=== PATIENT | female | born 1965 | race Caucasian/White ===

== ENCOUNTER 2018-11-26 10:51 | Observation (INO) | payer MEDICARE ==
[2018-11-26] VITALS (289 sets, daily range): BP systolic 114–152; BP diastolic 62–81; PULSE 62–74; TEMP 98–98.1; O2SAT 92–100
[~2018-11-26] VITALS: Ht 162.6 cm; Wt 110.0 kg
[~2018-11-26 10:51] MED LIST: BETAMETHASONE D0.053 TP; BUMEX 1MG TA1 MG/TA1 PO; LANTUS SOLOS100 U/ML SQ; NORVASC 5MG5 MG/TAB PO; NOVOLOG 100U100 U/M1 SQ; PRINIVIL10 MG PO; SYNTHROID0.2 MG/TAB PO; ULTRAM 50MG TAB50 MG PO
[2018-11-26 11:11] LABS: BASO # 0.1 (0.0-0.2); BASO % 0.9 % (0.0-2.0); EOS # 0.2 (0.0-0.7); GRAN # 5.5 (1.4-6.5); GRAN % 67.6 % (42.2-75.2); HEMOGLOBIN 12.3 g/dl (12.5-16.0); LYMPH # 1.8 (1.2-3.4); LYMPH % 22.1 % (20.0-51.0); MEAN CELL VOLUME 91 fl (80.0-100.0); MEAN CORPUSCULAR HEMOGLOBIN 29 pg (27.0-31.0); MEAN CORPUSCULAR HGB CONC 32 g/dl (33.0-37.0); MEAN PLATELET VOLUME 10.6 fl (7.4-10.4); MONO # 0.6 (0.1-0.6); MONO % 7.2 % (1.7-9.3); PLATELET COUNT 310 K/mm3 (130-400); RED BLOOD COUNT 4.29 M/mm3 (4.10-5.30); REDCELL DISTRIBUTION WIDTH-CV 14.5 % (11.5-14.5)
[2018-11-26 11:14] LABS: INR 0.9 (0.8-3.0)
[2018-11-26 11:23] LABS: PARTIAL THROMBOPLASTIN TIME 35.1 SECONDS (26.0-37.0)
[2018-11-26 11:24] LABS: ALANINE AMINOTRANSFERASE 12 U/L (9-52); ALBUMIN 4.1 gm/dL (3.5-5.0); ALKALINE PHOSPHATASE 111 U/L (50-136); ANION GAP 8 mmol/L (7-16); AST,SGOT 25 U/L (15-37); BILIRUBIN,TOTAL 0.4 mg/dL (0.0-1.0); BLOOD UREA NITROGEN 51 mg/dL (7-17); CALCIUM 9.8 mg/dL (8.4-10.2); CARBON DIOXIDE 22 mmol/L (22-30); CHLORIDE 110 mmol/L (98-107); CREATININE, serum 1.96 (0.52-1.25); GLUCOSE 169 mg/dL (74-106); POTASSIUM 5.6 mmol/L (3.4-5.0); SODIUM 140 mmol/L (137-145); TOTAL PROTEIN 7.7 gm/dL (6.4-8.2)
[2018-11-26 11:39] LABS: TROPONIN-I < 0.012 ng/mL (0.000-0.035)
[2018-11-26] MEDS ORDERED: NEURONTIN300 MG/CAP PO (12:55)
[2018-11-26] MEDS ORDERED: TEMOVATE60CR TOP (12:55)
[2018-11-26] MEDS ORDERED: NORVASC 5MG5 MG/TAB PO (12:55)
[2018-11-26] MEDS ORDERED: BUMEX 1MG TA1 MG/TA1 PO (12:55)
[2018-11-26] MEDS ORDERED: NOVOLOG FLEX100 U/ML SQ (12:56)
[2018-11-26] MEDS ORDERED: LEVOXYL0.125 MG PO (12:56)
[2018-11-26] MEDS ORDERED: TRULICITY0.75 MG/0. SQ (12:57)
[2018-11-26] MEDS ORDERED: ULTRAM 50MG TAB50 MG PO (12:57)
[2018-11-26] MEDS ORDERED: PRINIVIL10 MG PO (12:57)
[2018-11-26] MEDS ORDERED: 00186-0370-20 IH (12:57)
--- NOTE | 2018-11-26 13:32 | NUR ---
PLEASE SEE MERGE FOR ALL MEDICATION ADMINISTRATION TIMES , RASS ASSESSMENT DURING AND POST PROCEDURE.ALLENS TEST POSITIVE RIGHT RADIAL APPROACH PREPPED AND DRAPED.
--- NOTE | 2018-11-26 14:55 | NUR ---
Patient arrives to ICU. TR band in place on right radial site. She is alert and oriented. VS WNL. No s/s bleeding or hematoma. Will continue to monitor.
[2018-11-26] MEDS ORDERED: LANTUS100 U/ML (15:06)
[2018-11-26] MEDS ORDERED: LANTUS SOLOS100 U/ML SQ (15:07)
--- NOTE | 2018-11-26 18:30 | NUR ---
AIR REMOVED FROM TR BAND INTERMITTENTLY. ALL AIR REMOVED FROM TR BAND, THEN OOZING OCCURRED. 7 CC REPLACED BACK IN TR BAND. PATIENT GIVEN EDUCATION ON ABSTAINING FROM FLEXING WRIST OR DOING VERY MUCH WITH THAT ARM. SHE VERBALIZES UNDERSTANDING.
--- NOTE | 2018-11-26 22:05 | NUR ---
RADIAL COMPRESSION BAND REMOVED AT THIS TIME. COVERED WITH A BANDAID AND GAUZE.
[2018-11-27] VITALS (96 sets, daily range): BP systolic 136–171; BP diastolic 66–72; PULSE 61–73; TEMP 97.3–98.6; O2SAT 91–100
--- NOTE | 2018-11-27 03:29 | NUR ---
PATIENT IS CURRENTLY TALKING TO A FRIEND ON THE PHONE. PATIENT IS DOING GOOD. DENIES ANY PAINAT THIS TIME.
[2018-11-27 04:57] LABS: BASO % 0.5 % (0.0-2.0); EOS # 0.2 (0.0-0.7); EOS % 2.7 % (0-4.0); GRAN # 3.9 (1.4-6.5); GRAN % 61.8 % (42.2-75.2); LYMPH # 1.6 (1.2-3.4); LYMPH % 25.4 % (20.0-51.0); MEAN CELL VOLUME 91 fl (80.0-100.0); MEAN CORPUSCULAR HEMOGLOBIN 29 pg (27.0-31.0); MEAN CORPUSCULAR HGB CONC 32 g/dl (33.0-37.0); MEAN PLATELET VOLUME 10.7 fl (7.4-10.4); MONO # 0.6 (0.1-0.6); MONO % 9.4 % (1.7-9.3); PLATELET COUNT 250 K/mm3 (130-400); RED BLOOD COUNT 3.76 M/mm3 (4.10-5.30); REDCELL DISTRIBUTION WIDTH-CV 14.3 % (11.5-14.5)
[2018-11-27 04:58] LABS: HEMATOCRIT 34.3 % (37.0-47.0)
[2018-11-27 05:10] LABS: CALCIUM 9.1 mg/dL (8.4-10.2); CHOLESTEROL RISK RATIO 3.2; CREATININE, serum 1.57 (0.52-1.25); POTASSIUM 5.2 mmol/L (3.4-5.0)
--- NOTE | 2018-11-27 07:04 | NUR ---
GAVE REPORT TO ANAMIKA BLAKE.
[2018-11-27] MEDS ORDERED: BRILINTA90 MG PO (09:25)
[2018-11-27] MEDS ORDERED: ASPIRIN E.C. 8181 MG PO (09:25)
[2018-11-27] MEDS ORDERED: LIPITOR 80MG80 MG PO (09:25)
[2018-11-27] MEDS ORDERED: NEURONTIN300 MG/CAP PO (09:27)
[2018-11-27] MEDS ORDERED: COREG 3.123.125 MG/T PO (09:31)
--- NOTE | 2018-11-27 10:21 | NUR ---
SW attended clinical rounds. Patient lives independently at home with her . Patient's PCP is Dr Duckworth and [facility]. Patient does not use any DME or home health services. Patient does not have a DPOA. Patient will discharge home today. No discharge needs.
--- NOTE | 2018-11-27 11:31 | NUR ---
First visit from the broadcast technician. No needs right now.
--- NOTE | 2018-11-27 11:35 | NUR ---
Discharge instructions and education given to patient and reviewed. Voices understanding. Reviewed all medicaiton changes, pharmacy also spoke with patient about new medications and changes in current medications.
--- NOTE | 2018-11-27 12:01 | NUR ---
Sitting up in chair, dressed and waiting on . ICU Nurse supervisior in with patient at this time. Will await 's arrival.
--- NOTE | 2018-11-27 12:06 | NUR ---
Ambulatory to POV with driving. All belongings with patient.
== END 2018-11-27 12:06 | disposition home or self-care (01) ==
LOC: COL.ER 10:51 → MEDICAL 12:38 → ICU 15:03
PROVIDERS: Family Medicine; ADMIT Internal Medicine Cardiovascular Disease
DX: H54.40 Blindness, one eye, unspecified eye (principal); I25.110 Atherosclerotic heart disease of native coronary artery with unstable angina pectoris; E87.5 Hyperkalemia; E11.22 Type 2 diabetes mellitus with diabetic chronic kidney disease; I12.9 Hypertensive chronic kidney disease with stage 1 through stage 4 chronic kidney disease, or unspecified chronic kidney disease; N18.4 Chronic kidney disease, stage 4 (severe); L40.9 Psoriasis, unspecified; Z79.4 Long term (current) use of insulin; Z79.899 Other long term (current) drug therapy; Z87.891 Personal history of nicotine dependence; Z82.49 Family history of ischemic heart disease and other diseases of the circulatory system; E11.319 Type 2 diabetes mellitus with unspecified diabetic retinopathy without macular edema; E11.40 Type 2 diabetes mellitus with diabetic neuropathy, unspecified; G89.29 Other chronic pain; M54.30 Sciatica, unspecified side; J44.9 Chronic obstructive pulmonary disease, unspecified; E03.9 Hypothyroidism, unspecified; H54.62 Unqualified visual loss, left eye, normal vision right eye
CPT/HCPCS: 99239; C9600; G0378; J0153; J1644; J1815; J2250; J3010; Q9967

== ENCOUNTER 2018-12-05 05:14 | Observation (INO) | payer MEDICARE ==
[~2018-12-05] VITALS: Ht 162.6 cm; Wt 110.9 kg
[~2018-12-05 05:14] MED LIST changes: +00186-0370-20 IH; +ASPIRIN E.C. 8181 MG PO; +BRILINTA90 MG PO; +COREG 3.123.125 MG/T PO; +LANTUS100 U/ML; +LEVOXYL0.125 MG PO; +LIPITOR 80MG80 MG PO; +NEURONTIN300 MG/CAP PO; +NOVOLOG FLEX100 U/ML SQ; +TEMOVATE60CR TOP; +TRULICITY0.75 MG/0. SQ
[2018-12-05 06:01] LABS: BASO # 0.1 (0.0-0.2); BASO % 0.6 % (0.0-2.0); EOS % 0.3 % (0-4.0); GRAN # 8.5 (1.4-6.5); GRAN % 80.6 % (42.2-75.2); HEMATOCRIT 37.8 % (37.0-47.0); HEMOGLOBIN 12.3 g/dl (12.5-16.0); LYMPH # 1.4 (1.2-3.4); LYMPH % 13.2 % (20.0-51.0); MEAN CELL VOLUME 90 fl (80.0-100.0); MEAN CORPUSCULAR HEMOGLOBIN 29 pg (27.0-31.0); MEAN CORPUSCULAR HGB CONC 33 g/dl (33.0-37.0); MEAN PLATELET VOLUME 11.5 fl (7.4-10.4); MONO # 0.5 (0.1-0.6); MONO % 4.9 % (1.7-9.3); PLATELET COUNT 311 K/mm3 (130-400); RED BLOOD COUNT 4.22 M/mm3 (4.10-5.30); REDCELL DISTRIBUTION WIDTH-CV 14.5 % (11.5-14.5)
[2018-12-05 07:10] LABS: ALANINE AMINOTRANSFERASE 34 U/L (9-52); ALBUMIN 3.6 gm/dL (3.5-5.0); ALKALINE PHOSPHATASE 119 U/L (50-136); ANION GAP 13 mmol/L (7-16); AST,SGOT 24 U/L (15-37); BILIRUBIN,TOTAL 0.6 mg/dL (0.0-1.0); BLOOD UREA NITROGEN 35 mg/dL (7-17); C-REACTIVE PROTEIN 0.9 mg/dL (0.0-0.9); CALCIUM 9.2 mg/dL (8.4-10.2); CARBON DIOXIDE 19 mmol/L (22-30); CHLORIDE 108 mmol/L (98-107); CREATININE, serum 1.76 (0.52-1.25); GLUCOSE 261 mg/dL (74-106); LIPASE 111 U/L (23-300); SODIUM 139 mmol/L (137-145); TOTAL PROTEIN 6.6 gm/dL (6.4-8.2)
[2018-12-05 07:11] LABS: POTASSIUM 6.3 mmol/L (3.4-5.0)
[2018-12-05 07:17] LABS: TROPONIN-I < 0.012 ng/mL (0.000-0.035)
[2018-12-05 11:09] VITALS: BP 138/56; PULSE 79; TEMP 98.2
--- NOTE | 2018-12-05 12:36 | NUR ---
Pt resting in bed with friend at bedside. Pt IV patent with no redness or infiltration noted and bicarb running per orders. Pt BS checked hourly x4. Pt does not have diet yet. Pt complains of pain in her back and lungs with breathing and abdomen. Pt given Tramadol per order from Dr. Wetzel with pain rated at 6/10. Pt has call light in reach. Pt reports diarhea this am. Pt denies needs at this time.
[2018-12-05 12:44] VITALS: BP 150/56; PULSE 82; TEMP 98.7
[2018-12-05 13:25] LABS: CALCIUM 9.2 mg/dL (8.4-10.2); CREATININE, serum 1.88 (0.52-1.25); POTASSIUM 5.1 mmol/L (3.4-5.0)
[2018-12-05 15:49] VITALS: BP 149/59; PULSE 79; TEMP 98.6
--- NOTE | 2018-12-05 17:50 | NUR ---
Pt stable this afternoon. Pain managed with Tramadol. Pt switched to NS and bicarb discontinued. Pt IV free of complications. Pt aware to let staff know when have BM or urine for collection. Pt started on clear liquid diet. Pt has drank water without issue and clear tray arrived. Pt given insulin per scale. Pt rates pain 3/10 in abdomen and back. Pt has call light in reach and denies needs at this time.
--- NOTE | 2018-12-05 18:53 | NUR ---
Pt report given to Divya WILLSON. Pt UA collected and Divya will take it down to lab. Pt alert and oriented and denies needs at this time.
[2018-12-05 20:32] LABS: COLLECTION METHOD CLEAN CATCH
[2018-12-05 20:52] LABS: MUCOUS Present /lpf; PH 5 (5-8); SQUAMOUS EPITHELIAL 0-2 /hpf; URINE APPEARANCE Clear; URINE BACTERIA None Seen /hpf; URINE BILIRUBIN Negative (NEGATIVE); URINE BLOOD Negative (NEGATIVE); URINE COLOR Yellow; URINE GLUCOSE 3+ (NEGATIVE); URINE KETONE 1+ (NEGATIVE); URINE LEUKOCYTE ESTERASE Negative (NEGATIVE); URINE NITRATE Negative (NEGATIVE); URINE PROTEIN(semi-quant) Negative (NEGATIVE); URINE RBC None Seen /hpf; URINE UROBILINOGEN Negative (NEGATIVE)
--- NOTE | 2018-12-05 20:53 | NUR ---
Resting in bed. Assessment complete. Lungs clear. Heart sounds normal. Bowels active x4. Pulses strong throughout. No edema noted. IV to left AC infusing without complications. Reports 4/10 back pain. Provided with scheduled tramadol. Denies other needs at this time. Call light in reach.
[2018-12-05 23:42] VITALS: BP 153/57; PULSE 69; TEMP 98.6
[2018-12-06 04:25] VITALS: BP 164/61; PULSE 96; TEMP 99
[2018-12-06 04:35] VITALS: BP 146/50
--- NOTE | 2018-12-06 05:48 | NUR ---
Patient had uneventful night. Resting in bed this AM. Call light in reach.
--- NOTE | 2018-12-06 06:55 | NUR ---
Report given to ANAMIKA Jones
[2018-12-06 07:05] LABS: BASO # 0.1 (0.0-0.2); BASO % 0.9 % (0.0-2.0); EOS # 0.2 (0.0-0.7); EOS % 2.5 % (0-4.0); GRAN # 3.7 (1.4-6.5); GRAN % 55.3 % (42.2-75.2); HEMOGLOBIN 10.9 g/dl (12.5-16.0); LYMPH # 2.1 (1.2-3.4); LYMPH % 30.6 % (20.0-51.0); MEAN CELL VOLUME 91 fl (80.0-100.0); MEAN CORPUSCULAR HEMOGLOBIN 29 pg (27.0-31.0); MEAN CORPUSCULAR HGB CONC 32 g/dl (33.0-37.0); MEAN PLATELET VOLUME 11.5 fl (7.4-10.4); MONO # 0.7 (0.1-0.6); MONO % 10.6 % (1.7-9.3); PLATELET COUNT 278 K/mm3 (130-400); RED BLOOD COUNT 3.75 M/mm3 (4.10-5.30); REDCELL DISTRIBUTION WIDTH-CV 14.7 % (11.5-14.5)
[2018-12-06 07:24] LABS: CALCIUM 8.6 mg/dL (8.4-10.2); CREATININE, serum 1.52 (0.52-1.25); POTASSIUM 4.3 mmol/L (3.4-5.0)
[2018-12-06 08:32] VITALS: BP 162/77; PULSE 70; TEMP 98.5
--- NOTE | 2018-12-06 08:50 | NUR ---
Pt assessment complete. Pt is sitting up on side of bed upon entry, she is A/O x3. Pt states she is ready to go home. Denies N/V or diarrhea. Currently reports pain to lower back, scheduled Ultram administered. POC discussed with patient who is going to try a bland diet this am. No needs at this time. Call light within reach.
[2018-12-06 09:17] LABS: URINE PROTEIN:CREAT RATIO 0.4 (0.00-0.14)
--- NOTE | 2018-12-06 11:59 | NUR ---
KARL met with the patient to discuss a discharge plan. The patient lives in [place] with her , Srini. The patient does not use any DME and reports independence with ADLs. The patient's PCP is Dr. Duckworth and the patient receives her medications from [facility]. The patient reports no difficulties obtaining her medications. The patient does not have advanced directives in the EMR and she was not interested in obtaining a DPOA-HC form. The patient plans to return home upon discharge. There are no additional needs at this time.
[2018-12-06 12:02] VITALS: BP 151/85; PULSE 65; TEMP 98.6
[2018-12-06] MEDS ORDERED: NORVASC 5MG5 MG/TAB PO (12:22)
--- NOTE | 2018-12-06 14:05 | NUR ---
Discharge paperwork and instructions reviewed with patient all questions answered at this time. IV to LAC dc'd catheter tip intact. Pt wheeled out at this time.
== END 2018-12-06 14:06 | disposition home or self-care (01) ==
LOC: COL.ER 05:14 → MEDICAL 07:42
PROVIDERS: Emergency Medicine; Internal Medicine; Physician Assistant; ADMIT Family Medicine
DX: K52.9 Noninfective gastroenteritis and colitis, unspecified (principal); E87.5 Hyperkalemia; E87.2 Acidosis; E11.22 Type 2 diabetes mellitus with diabetic chronic kidney disease; I12.9 Hypertensive chronic kidney disease with stage 1 through stage 4 chronic kidney disease, or unspecified chronic kidney disease; N18.3 Chronic kidney disease, stage 3 (moderate); Z79.4 Long term (current) use of insulin; E11.40 Type 2 diabetes mellitus with diabetic neuropathy, unspecified; E11.319 Type 2 diabetes mellitus with unspecified diabetic retinopathy without macular edema; I25.10 Atherosclerotic heart disease of native coronary artery without angina pectoris; Z95.5 Presence of coronary angioplasty implant and graft; J44.9 Chronic obstructive pulmonary disease, unspecified; E03.9 Hypothyroidism, unspecified; L40.9 Psoriasis, unspecified; M54.30 Sciatica, unspecified side; H54.8 Legal blindness, as defined in USA; Z87.891 Personal history of nicotine dependence
CPT/HCPCS: G0378; J0610; J1644; J1815; J2270; J2405; J7030

== ENCOUNTER 2019-01-17 21:03 | Inpatient (IN) | payer MEDICARE ==
[~2019-01-17] VITALS: Ht 165.1 cm; Wt 100.8 kg
[2019-01-17 21:56] LABS: ALANINE AMINOTRANSFERASE 35 U/L (9-52); ALBUMIN 4.3 gm/dL (3.5-5.0); ALKALINE PHOSPHATASE 145 U/L (50-136); ANION GAP 16 mmol/L (7-16); AST,SGOT 36 U/L (15-37); BILIRUBIN,TOTAL 0.6 mg/dL (0.0-1.0); BLOOD UREA NITROGEN 44 mg/dL (7-17); CALCIUM 10.1 mg/dL (8.4-10.2); CARBON DIOXIDE 23 mmol/L (22-30); CHLORIDE 101 mmol/L (98-107); CREATININE, serum 2.65 (0.52-1.25); GLUCOSE 122 mg/dL (74-106); LIPASE 41 U/L (23-300); POTASSIUM 3.7 mmol/L (3.4-5.0); SODIUM 140 mmol/L (137-145); TOTAL PROTEIN 8.1 gm/dL (6.4-8.2)
[2019-01-17 21:57] LABS: C-REACTIVE PROTEIN < 0.5 mg/dL (0.0-0.9)
[2019-01-17 22:05] LABS: TROPONIN-I < 0.012 ng/mL (0.000-0.035)
[2019-01-17 22:25] LABS: BASO # 0.1 (0.0-0.2); BASO % 0.9 % (0.0-2.0); EOS # 0.3 (0.0-0.7); EOS % 2.6 % (0-4.0); GRAN # 5.9 (1.4-6.5); GRAN % 61.7 % (42.2-75.2); HEMATOCRIT 41.6 % (37.0-47.0); HEMOGLOBIN 13.7 g/dl (12.5-16.0); LYMPH # 2.5 (1.2-3.4); LYMPH % 25.8 % (20.0-51.0); MEAN CELL VOLUME 90 fl (80.0-100.0); MEAN CORPUSCULAR HEMOGLOBIN 30 pg (27.0-31.0); MEAN CORPUSCULAR HGB CONC 33 g/dl (33.0-37.0); MEAN PLATELET VOLUME 10.7 fl (7.4-10.4); MONO # 0.8 (0.1-0.6); MONO % 8.8 % (1.7-9.3); PLATELET COUNT 378 K/mm3 (130-400); RED BLOOD COUNT 4.62 M/mm3 (4.10-5.30); REDCELL DISTRIBUTION WIDTH-CV 15.5 % (11.5-14.5)
[2019-01-17 22:36] LABS: COLLECTION METHOD CLEAN CATCH
[2019-01-17 22:45] LABS: HYALINE CAST >12 /lpf; MUCOUS Present /lpf; PH 5 (5-8); SQUAMOUS EPITHELIAL 0-2 /hpf; URINE APPEARANCE Clear; URINE BACTERIA None Seen /hpf; URINE BILIRUBIN Negative (NEGATIVE); URINE BLOOD Negative (NEGATIVE); URINE COLOR Yellow; URINE GLUCOSE Negative (NEGATIVE); URINE KETONE Negative (NEGATIVE); URINE LEUKOCYTE ESTERASE Negative (NEGATIVE); URINE NITRATE Negative (NEGATIVE); URINE PROTEIN(semi-quant) Negative (NEGATIVE); URINE RBC 0-2 /hpf; URINE UROBILINOGEN Negative (NEGATIVE)
[2019-01-17 23:50] VITALS: BP 120/71; PULSE 70; TEMP 98.3
--- NOTE | 2019-01-18 01:24 | NUR ---
PT ARRIVED FROM ER VIA WHEELCHAIR WITH NO FAMILY. PT CAME IN DUE TO ABDOMINAL PAIN THAT HAS BEEN GOING ON FOR A WHILE, ABOUT 1 WEEK SINCE SATURDAY. PT ADVISES THAT SHE HAS NOT BEEN TAKING INSULIN DUE TO NOT BEING ABLE TO EAT LIKE SHE IS USE TO. PT HAS BANDAIDS ON ARMS DUE TO BLEEDING WHEN SHE RUBS HER ARM. PT ADVISES THAT WAS FROM THE BLOOD THINNERS SHE WAS TAKING, NOT SURE WHAT THE NAME OF IT IS AT THIS TIME. PT RATES PAIN AT A 7/10 THAT IS SHARP IN ABDOMEN. NO NEEDS AT TIME. CALL LIGHT WITHIN REACH.
[2019-01-18] MEDS ORDERED: BUMEX 1MG TA1 MG/TA1 PO (02:03)
[2019-01-18] MEDS ORDERED: BLOOD THINNER PO (02:04)
[2019-01-18] MEDS ORDERED: HYDRODIURIL50 MG PO (02:07)
[2019-01-18 03:52] VITALS: BP 135/72; PULSE 65; TEMP 98.2
[2019-01-18 07:10] LABS: BASO # 0.1 (0.0-0.2); BASO % 0.8 % (0.0-2.0); EOS # 0.3 (0.0-0.7); EOS % 3.8 % (0-4.0); GRAN # 4.3 (1.4-6.5); GRAN % 56.3 % (42.2-75.2); HEMOGLOBIN 11.9 g/dl (12.5-16.0); LYMPH # 2.3 (1.2-3.4); LYMPH % 29.6 % (20.0-51.0); MEAN CELL VOLUME 91 fl (80.0-100.0); MEAN CORPUSCULAR HEMOGLOBIN 30 pg (27.0-31.0); MEAN CORPUSCULAR HGB CONC 32 g/dl (33.0-37.0); MEAN PLATELET VOLUME 10.7 fl (7.4-10.4); MONO # 0.7 (0.1-0.6); MONO % 9.2 % (1.7-9.3); PLATELET COUNT 332 K/mm3 (130-400); RED BLOOD COUNT 4.04 M/mm3 (4.10-5.30); REDCELL DISTRIBUTION WIDTH-CV 15.7 % (11.5-14.5)
[2019-01-18 07:18] LABS: HEMATOCRIT 36.8 % (37.0-47.0)
--- NOTE | 2019-01-18 07:19 | NUR ---
PT SLEPT/RESTED WELL IN BED, EVEN THOUGH PT ADVISED THAT SHE HAD PAIN RATED AT A 7/10 THAT WAS SHARP IN HER ABDOMEN. PT WAS GIVEN NORCO 5/325 MG PO FOR PAIN. PT HAD CALLED OF NEW MEDICATIONS AND THE MEDS THAT SHE RECEIVED FROM HIM WAS ALREADY ON HER LIST. PT DID NOT HAVE ANY BLOOD THINNER LISTED. PT HAD NO FURTHER NEEDS, CALL LIGHT WITHIN REACH.
[2019-01-18 07:25] LABS: CREATININE, serum 2.17 (0.52-1.25); POTASSIUM 3.2 mmol/L (3.4-5.0)
[2019-01-18 08:34] VITALS: BP 138/63; PULSE 66; TEMP 98.2
--- NOTE | 2019-01-18 09:01 | NUR ---
Patient laying in bed upon assessment. Continues to complain of abdominal pain at 7/10. States that the previous dose of [place] did not decrease pain. Another dose given in addition to scheduled Neurontin. Tray of clear liquids ordered for patient to try sipping on this morning. Patient states that eating typically makes the pain worse but would like to and is willing to try some clear liquids. Inspiratory and expiratory wheezing heard. Patient states she has COPD/emphysema and this is normal for her. No oxygen use at this time and patient denies being short of breath. Patient continuing to rest in bed at this time. No further concerns. Call light in reach.
--- NOTE | 2019-01-18 11:16 | NUR ---
Order placed for GI consult. Notified Dr. Mcbride's nurse of consult as her was in a procedure.
[2019-01-18 11:20] VITALS: BP 120/73; PULSE 66; TEMP 97.9
[2019-01-18 15:59] VITALS: BP 115/72; PULSE 103; TEMP 98.2
--- NOTE | 2019-01-18 16:41 | NUR ---
Plans to return home with Srini Juarez . Patient reports that [place] [address] [place] [address] [place] Patient reports that she has her spouse as care support or son Lamont Granda . Patient reports PCP as [facility] used for RX and denies having any DME's Or DPOA's. Patient declined setting up DPOA. Patient reports that she will transport herself home. Patient does not have any identified needs at this time.
[2019-01-18 20:00] VITALS: BP 113/74; PULSE 66; TEMP 98.8
--- NOTE | 2019-01-18 21:08 | NUR ---
PT A/O X4, ADVISES THAT SHE FEELS SO MUCH BETTER AND THAT THE CARAFATE IS WORKING FOR HER. PT IN BED WITH HOB AT 15 DEGREE ANGLE. NO NEEDS AT THIS TIME, CALL LIGHT WITHIN REACH.
--- NOTE | 2019-01-18 21:21 | NUR ---
RECEIVED CALL FROM LAB THAT HCG CAME BACK POSITIVE, CALLED [facility] AND ADVISED OF THE THE TEST RESULTS.
[2019-01-18 23:23] VITALS: BP 148/66; PULSE 58; TEMP 97.9
--- NOTE | 2019-01-19 00:25 | NUR ---
WENT INTO PT'S ROOM BEFORE MIDNIGHT. PT WAS OFFERED A SNACK BEFORE MIDNIGHT, DUE TO BEING NPO AFTER MIDNIGHT. PT WAS GIVEN A ORANGE JELLO. PT AWARE THAT AFTER MIDNIGHT SHE IS TO HAVE NOTHING BY MOUTH. PT DENIES PAIN OR DISCOMFORT. PT ADVISES THAT THE CARFATE HAS MADE A BIG DIFFERENCE AND SHE DOESN'T HAVE ANY PAIN. PT RESTING IN BED WITH TV AND LIGHTS OFF. NO FURTHER NEEDS CALL LIGHT WITHIN REACH.
[2019-01-19 04:05] VITALS: BP 126/67; PULSE 59; TEMP 97.5
[2019-01-19 07:01] LABS: BASO # 0.1 (0.0-0.2); BASO % 1.2 % (0.0-2.0); EOS # 0.3 (0.0-0.7); EOS % 4.8 % (0-4.0); GRAN # 3.5 (1.4-6.5); GRAN % 58.7 % (42.2-75.2); HEMOGLOBIN 11.4 g/dl (12.5-16.0); LYMPH # 1.5 (1.2-3.4); LYMPH % 25.1 % (20.0-51.0); MEAN CELL VOLUME 92 fl (80.0-100.0); MEAN CORPUSCULAR HEMOGLOBIN 30 pg (27.0-31.0); MEAN CORPUSCULAR HGB CONC 32 g/dl (33.0-37.0); MEAN PLATELET VOLUME 10.8 fl (7.4-10.4); MONO # 0.6 (0.1-0.6); PLATELET COUNT 300 K/mm3 (130-400); RED BLOOD COUNT 3.86 M/mm3 (4.10-5.30); REDCELL DISTRIBUTION WIDTH-CV 15.8 % (11.5-14.5)
[2019-01-19 07:14] LABS: CALCIUM 8.2 mg/dL (8.4-10.2); CREATININE, serum 1.49 (0.52-1.25); POTASSIUM 3.9 mmol/L (3.4-5.0)
--- NOTE | 2019-01-19 07:24 | NUR ---
Received report, patient is up to restroom independently. Received call from lab with report that patient has a slight positive on her serum hcg. Suggested to request a quanatative order. Is alert and oriented. Gailt is steady. Respirations are even and non labored. Personal items are within reach.
[2019-01-19 07:33] LABS: HEMATOCRIT 35.6 % (37.0-47.0)
[2019-01-19 08:41] VITALS: BP 121/74; PULSE 64; TEMP 97.7
[2019-01-19 08:44] VITALS: BP 121/74; PULSE 69; TEMP 97.7
[2019-01-19 11:39] VITALS: BP 134/71; PULSE 67; TEMP 98
--- NOTE | 2019-01-19 11:48 | NUR ---
First visit from the diesel locomotive firer/fireman. No needs right now.
--- NOTE | 2019-01-19 11:54 | NUR ---
Patient is awake and alert. Received PRN norco for pain this morning for abdominal pain. States was effective and has been noticed to be ambulating in [place] independently. Does have IV pole with her and is having no trouble ambulating and manuevering it. Is plesant and talkative. Respirations are even and non-labored. Personal items and call light is within reach.
[2019-01-19 15:42] VITALS: BP 122/69; PULSE 62
[2019-01-19] MEDS ORDERED: PROTONIX 40MG T40 MG PO (17:10)
[2019-01-19] MEDS ORDERED: CARAFATE 1GM1 G PO (17:14)
--- NOTE | 2019-01-19 19:02 | NUR ---
Patient discharged home this evening. IV discontinued. Personal items sent with patient. Discharged VIA private vehicle.
== END 2019-01-19 18:45 | disposition home or self-care (01) | DRG 392 ==
LOC: COL.ER 21:03 → MEDICAL 22:51
PROVIDERS: Emergency Medicine; Internal Medicine Gastroenterology; Nurse Practitioner; ADMIT Hospitalist
PROC: 0DB78ZX Excision of Stomach, Pylorus, Via Natural or Artificial Opening Endoscopic, Diagnostic (ICD-10-PCS; principal; 2019-01-19 14:15)
DX: K29.50 Unspecified chronic gastritis without bleeding (principal); N17.9 Acute kidney failure, unspecified; I25.10 Atherosclerotic heart disease of native coronary artery without angina pectoris; E78.5 Hyperlipidemia, unspecified; E03.9 Hypothyroidism, unspecified; E11.22 Type 2 diabetes mellitus with diabetic chronic kidney disease; G89.29 Other chronic pain; J44.9 Chronic obstructive pulmonary disease, unspecified; E11.42 Type 2 diabetes mellitus with diabetic polyneuropathy; I12.9 Hypertensive chronic kidney disease with stage 1 through stage 4 chronic kidney disease, or unspecified chronic kidney disease; N18.3 Chronic kidney disease, stage 3 (moderate); Z79.4 Long term (current) use of insulin; Z95.5 Presence of coronary angioplasty implant and graft; Z87.891 Personal history of nicotine dependence; Z90.710 Acquired absence of both cervix and uterus; Z32.01 Encounter for pregnancy test, result positive
CPT/HCPCS: 99239; G0378; J1815; J2250; J3010; J7030

== ENCOUNTER 2019-04-04 20:09 | Inpatient (IN) | payer MEDICARE ==
[~2019-04-04] VITALS: Ht 162.6 cm; Wt 110.9 kg
[~2019-04-04 20:09] MED LIST changes: +BLOOD THINNER PO; +CARAFATE 1GM1 G PO; +HYDRODIURIL50 MG PO; +PROTONIX 40MG T40 MG PO
[2019-04-04 20:47] LABS: BASO # 0.1 (0.0-0.2); BASO % 0.4 % (0.0-2.0); EOS # 0.2 (0.0-0.7); EOS % 1.3 % (0-4.0); GRAN # 10.6 (1.4-6.5); GRAN % 78.1 % (42.2-75.2); HEMOGLOBIN 11.8 g/dl (12.5-16.0); LYMPH # 1.7 (1.2-3.4); LYMPH % 12.9 % (20.0-51.0); MEAN CELL VOLUME 87 fl (80.0-100.0); MEAN CORPUSCULAR HEMOGLOBIN 29 pg (27.0-31.0); MEAN CORPUSCULAR HGB CONC 33 g/dl (33.0-37.0); MONO # 0.9 (0.1-0.6); MONO % 6.9 % (1.7-9.3); PLATELET COUNT 620 K/mm3 (130-400); REDCELL DISTRIBUTION WIDTH-CV 14.6 % (11.5-14.5)
[2019-04-04 20:48] LABS: HEMATOCRIT 35.8 % (37.0-47.0)
[2019-04-04 20:55] LABS: ALANINE AMINOTRANSFERASE 13 U/L (9-52); ALBUMIN 4.4 gm/dL (3.5-5.0); ALKALINE PHOSPHATASE 118 U/L (50-136); ANION GAP 13 mmol/L (7-16); AST,SGOT 30 U/L (15-37); BILIRUBIN,TOTAL 0.8 mg/dL (0.0-1.0); BLOOD UREA NITROGEN 36 mg/dL (7-17); CALCIUM 9.4 mg/dL (8.4-10.2); CARBON DIOXIDE 29 mmol/L (22-30); CREATININE, serum 1.83 (0.52-1.25); GLUCOSE 123 mg/dL (74-106); LIPASE 54 U/L (23-300); POTASSIUM 3.2 mmol/L (3.4-5.0); SODIUM 121 mmol/L (137-145); TOTAL PROTEIN 7.9 gm/dL (6.4-8.2)
[2019-04-04 21:13] LABS: CHLORIDE 79 mmol/L (98-107); TROPONIN-I < 0.012 ng/mL (0.000-0.035)
[2019-04-04 23:20] VITALS: BP 125/64; PULSE 63; TEMP 97.8
[2019-04-04 23:24] VITALS: BP 125/54; PULSE 63; TEMP 97.6
[2019-04-04] MEDS ORDERED: NEURONTIN600 MG/TAB PO (23:53)
[2019-04-05] MEDS ORDERED: HYDRODIURIL50 MG PO (00:05)
[2019-04-05 01:51] VITALS: BP 89/48; PULSE 62; TEMP 98
--- NOTE | 2019-04-05 02:13 | NUR ---
PT ARRIVED FROM ER VIA WHEEL CHAIR AND ABLE TO AMBULATE TO BED. PT A/O X4, AND ADVISED THAT SHE FEELS SO MUCH BETTER. [facility] CAME IN AND ASSESSED AND INTERVIEWED PT. PT REQUESTING NICOTINE PATCH. PT AWARE THAT SHE IS NOT TO HAVE ANY FREE WATER, ALSO THAT SHE IS VS EVERY 2 HOURS. PT HAS NO NEEDS AT THIS TIME, ONLY WANTS TO GET SOME SLEEP. CALL LIGHT WITHIN REACH.
[2019-04-05 03:35] LABS: ANION GAP 14 mmol/L (7-16); BLOOD UREA NITROGEN 37 mg/dL (7-17); CALCIUM 8.9 mg/dL (8.4-10.2); CARBON DIOXIDE 27 mmol/L (22-30); CREATININE, serum 1.92 (0.52-1.25); GLUCOSE 181 mg/dL (74-106); SODIUM 120 mmol/L (137-145)
[2019-04-05 03:46] LABS: CHLORIDE 79 mmol/L (98-107)
[2019-04-05 03:47] LABS: TROPONIN-I 6 HR POST INITIAL < 0.012 ng/mL (0.000-0.034)
--- NOTE | 2019-04-05 03:49 | NUR ---
CALLED [facility] IN REFERENCE TO PT'S LABS. ADVISED THAT CHLORIDE STILL AT 79 AND SODIUM AT 120. NO NEW ORDERS GIVEN.
[2019-04-05 03:54] VITALS: BP 112/53; PULSE 63; TEMP 98
--- NOTE | 2019-04-05 05:17 | NUR ---
PT IN BED WITH HOB AT 45 DEGREE ANGLE, 3L/NC ON, AND PT RESTING/SLEEPING IN BED, BUT EASILY AWAKENS. PT DENIES PAIN OR DISCOMFORT AND JUST WANTS TO TRY AND SLEEP FOR A LITTLE WHILE. NO NEEDS AT THIS TIME, CALL LIGHT WITHIN REACH.
[2019-04-05 07:37] LABS: HEMOGLOBIN 10.8 g/dl (12.5-16.0); MEAN CELL VOLUME 84 fl (80.0-100.0); MEAN CORPUSCULAR HEMOGLOBIN 28 pg (27.0-31.0); MEAN CORPUSCULAR HGB CONC 34 g/dl (33.0-37.0); MEAN PLATELET VOLUME 10.7 fl (7.4-10.4); RED BLOOD COUNT 3.82 M/mm3 (4.10-5.30); REDCELL DISTRIBUTION WIDTH-CV 14.1 % (11.5-14.5)
[2019-04-05 07:41] LABS: PLATELET COUNT 397 K/mm3 (130-400)
[2019-04-05 07:48] LABS: ALANINE AMINOTRANSFERASE 18 U/L (9-52); ALBUMIN 3.7 gm/dL (3.5-5.0); ALKALINE PHOSPHATASE 111 U/L (50-136); ANION GAP 14 mmol/L (7-16); AST,SGOT 28 U/L (15-37); BILIRUBIN,TOTAL 0.7 mg/dL (0.0-1.0); BLOOD UREA NITROGEN 39 mg/dL (7-17); CALCIUM 8.7 mg/dL (8.4-10.2); CARBON DIOXIDE 25 mmol/L (22-30); CREATININE, serum 2.03 (0.52-1.25); GLUCOSE 226 mg/dL (74-106); POTASSIUM 3.9 mmol/L (3.4-5.0); SODIUM 120 mmol/L (137-145); TOTAL PROTEIN 6.9 gm/dL (6.4-8.2)
[2019-04-05 07:54] VITALS: BP 101/53; PULSE 68; TEMP 98.3
[2019-04-05 08:07] LABS: LYMPHOCYTE 2 % (20.0-51.0); NEUTROPHILS 98 % (42.0-75.2); PLATELET ESTIMATE NORMAL (NORMAL)
[2019-04-05 08:08] LABS: TROPONIN-I < 0.012 ng/mL (0.000-0.035)
[2019-04-05 08:09] LABS: CHLORIDE 80 mmol/L (98-107)
--- NOTE | 2019-04-05 08:12 | NUR ---
Patient resting in bed upon assessment. She was sleeping prior to entering the room. States she is very tired after arriving late last night and would like to rest as much as possible this morning. Having back and "lung" pain at 5/10. The lower back pain is chronic but she states the "lung" pain is new over the past couple of weeks and worsened over the past couple of days. No further concerns at this time. Call light in reach.
[2019-04-05 11:59] VITALS: BP 107/68; PULSE 68; TEMP 98.1
--- NOTE | 2019-04-05 12:20 | NUR ---
Plan: Patient plans to return home with her spouse Srini Rodriguez . Patient reports not having any support at home with spouse but does not have anyone else to list. Assess: Patient indicated that her spouse will tranport or an associate. Patient reports that she does not require any DME support. PCP is reported as Cornel Duckworth with upcoming appt on Apr 16a t 345. No dpoa list and declienes assigning one. Patient reports that she is independent prior to this and resides [address] [place]. Patient denies the need for [facility]. ACtion: SW educated on community resources. Patient may need taxi voucher, no additonal needs identified.
--- NOTE | 2019-04-05 14:49 | NUR ---
REFUSED. PT WANTS TO SLEE[
[2019-04-05 16:13] LABS: COLLECTION METHOD CLEAN CATCH
[2019-04-05 16:24] VITALS: BP 112/36; PULSE 69; TEMP 98.2
[2019-04-05 16:24] LABS: MUCOUS Present /lpf; PH 5 (5-8); URINE APPEARANCE Hazy; URINE BACTERIA Rare /hpf; URINE BILIRUBIN Negative (NEGATIVE); URINE BLOOD 1+ (NEGATIVE); URINE COLOR Yellow; URINE GLUCOSE 1+ (NEGATIVE); URINE KETONE Trace (NEGATIVE); URINE LEUKOCYTE ESTERASE 2+ (NEGATIVE); URINE NITRATE Negative (NEGATIVE); URINE PROTEIN(semi-quant) Negative (NEGATIVE); URINE RBC 0-2 /hpf; URINE UROBILINOGEN Negative (NEGATIVE)
--- NOTE | 2019-04-05 18:21 | NUR ---
Patient's dinner time blood sugar was 539. Dr. Ku notified. Phone orders received for IV push regular insulin 15 units to be given now with a finger stick blood sugar checked 30 minutes later. Will verify blood sugar with a venous draw per protocol prior to IV insulin administration. Patient is waiting to eat her dinner until lab has resulted and we have a plan in place with further steps. Dr. Ku also placed order to restart long acting insluin and to have scheduled Novolog in addition to her sliding scale starting tomorrow as patient is now receiving IV steroids.
--- NOTE | 2019-04-05 19:20 | NUR ---
Report received from Anika. Pt resting in bed at this time with corrective eye wear in place on face. No current complaints. BS checked. Please refer to physician notification.
[2019-04-05 19:51] VITALS: BP 132/52; PULSE 75; TEMP 98.6
[2019-04-05 21:02] LABS: CALCIUM 8.4 mg/dL (8.4-10.2); CREATININE, serum 2.03 (0.52-1.25); POTASSIUM 3.4 mmol/L (3.4-5.0)
[2019-04-05 22:56] LABS: CALCIUM 8.4 mg/dL (8.4-10.2); CREATININE, serum 2.01 (0.52-1.25); POTASSIUM 3.4 mmol/L (3.4-5.0)
--- NOTE | 2019-04-05 23:11 | NUR ---
Report provided to Joseph Baum RN in ICU.
--- NOTE | 2019-04-05 23:40 | NUR ---
Pt transported via wheelchair with IV pumps and portable oxygen via this RN and gunstock spray unit feeder to ICU 05. Pt was assisted into bed and monitors in the process of being attached at time of this nurse exit.
[2019-04-06] VITALS (797 sets, daily range): BP systolic 112–143; BP diastolic 57–80; PULSE 56–70; TEMP 96.3–98.7; O2SAT 68–100
[2019-04-06 00:58] LABS: CALCIUM 8.1 mg/dL (8.4-10.2); CREATININE, serum 2.05 (0.52-1.25); POTASSIUM 3.7 mmol/L (3.4-5.0)
--- NOTE | 2019-04-06 05:23 | NUR ---
PT RESTING IN BED, DENIES PAIN AT THIS TIME. REMAINS ON INSULIN GTT@11 UNITS/HR W/ LAST [id number], AM CHEST XRAY COMPLETED. VSS AT THIS TIME. PT A/O X 3, LUNGS CLEAR TO DIM. PULSES PALPABLE. WILL CONTINUE TO MONITOR PT STATUS AND UPDATE PROVIDERS NEEDED.
[2019-04-06 05:51] LABS: HEMOGLOBIN 10.8 g/dl (12.5-16.0); MEAN CELL VOLUME 83 fl (80.0-100.0); MEAN CORPUSCULAR HEMOGLOBIN 28 pg (27.0-31.0); MEAN CORPUSCULAR HGB CONC 34 g/dl (33.0-37.0); MEAN PLATELET VOLUME 10.1 fl (7.4-10.4); PLATELET COUNT 401 K/mm3 (130-400); RED BLOOD COUNT 3.82 M/mm3 (4.10-5.30)
[2019-04-06 05:54] LABS: HEMATOCRIT 31.5 % (37.0-47.0)
[2019-04-06 06:04] LABS: CALCIUM 8.5 mg/dL (8.4-10.2); CREATININE, serum 1.9 (0.52-1.25); POTASSIUM 3.2 mmol/L (3.4-5.0)
[2019-04-06 06:33] LABS: LYMPHOCYTE 3 % (20.0-51.0); NEUTROPHILS 97 % (42.0-75.2)
[2019-04-06 06:34] LABS: PLATELET ESTIMATE INCREASED (NORMAL)
--- NOTE | 2019-04-06 07:00 | NUR ---
Bedside shift report received from ANAMIKA Helms. Patient is awake, alert, and responds appropriately. Full assessment completed. Vital signs stable. Call light within reach. Bed in lowest position. Side rails up x3. Patient has no complaints or concerns at this time.
--- NOTE | 2019-04-06 10:00 | NUR ---
Dr. Crane updated on patient's current blood sugar status, titrations, and rate changes. Telephone order received to put insulin gtt at 4 units/hr for now and he will reassess when he comes down to assess the patient.
--- NOTE | 2019-04-06 10:34 | NUR ---
Initial visit; Patient thanked Jet Piercer Operator for stopping in and offering encouragement and spiritual care.
[2019-04-06 11:19] LABS: MAGNESIUM 2.5 mg/dL (1.6-2.3); PHOSPHOROUS 2.9 mg/dL (2.5-4.5)
[2019-04-06 11:20] LABS: CALCIUM 8.8 mg/dL (8.4-10.2); CREATININE, serum 1.86 (0.52-1.25); POTASSIUM 3.6 mmol/L (3.4-5.0)
[2019-04-06 12:49] LABS: CALCIUM 8.7 mg/dL (8.4-10.2); CREATININE, serum 1.72 (0.52-1.25); POTASSIUM 3.6 mmol/L (3.4-5.0)
--- NOTE | 2019-04-06 15:14 | NUR ---
Discussed with Dr. Crane about patient's blood sugar trending up and other lab values. Orders received at this time.
[2019-04-06 17:16] LABS: CALCIUM 7.9 mg/dL (8.4-10.2); CREATININE, serum 1.74 (0.52-1.25); POTASSIUM 3.7 mmol/L (3.4-5.0)
--- NOTE | 2019-04-06 19:15 | NUR ---
Bedside shift report given to ANAMIKA Banda. Patient is awake, alert, and responds appropriately. Patient has no complaints or concerns at this time.
[2019-04-06 21:46] LABS: CALCIUM 8.5 mg/dL (8.4-10.2); CREATININE, serum 1.73 (0.52-1.25); POTASSIUM 3.9 mmol/L (3.4-5.0)
[2019-04-07] VITALS (720 sets, daily range): BP systolic 119–141; BP diastolic 60–77; PULSE 60–92; TEMP 97.3–98.5; O2SAT 77–100
--- NOTE | 2019-04-07 04:01 | NUR ---
HOLD INSULIN DRIP FOR 30 MINS AND WILL RESTART AT 6 UNITS/HR PER PROTOCOL.
[2019-04-07 05:39] LABS: MEAN CELL VOLUME 84 fl (80.0-100.0); MEAN CORPUSCULAR HGB CONC 34 g/dl (33.0-37.0); MEAN PLATELET VOLUME 10.3 fl (7.4-10.4); PLATELET COUNT 408 K/mm3 (130-400); RED BLOOD COUNT 3.45 M/mm3 (4.10-5.30); REDCELL DISTRIBUTION WIDTH-CV 14.5 % (11.5-14.5)
[2019-04-07 05:43] LABS: HEMATOCRIT 28.9 % (37.0-47.0); HEMOGLOBIN 9.8 g/dl (12.5-16.0); MEAN CORPUSCULAR HEMOGLOBIN 28 pg (27.0-31.0)
--- NOTE | 2019-04-07 05:45 | NUR ---
WBC AT 22.5 FROM 11.5. RESULT REPORTED TO GISSELLE LIGHT, NO NEW ORDERS GIVEN AT THIS TIME.
[2019-04-07 05:52] LABS: LYMPHOCYTE 4 % (20.0-51.0); NEUTROPHILS 96 % (42.0-75.2); PLATELET ESTIMATE INCREASED (NORMAL)
--- NOTE | 2019-04-07 07:00 | NUR ---
BEDSIDE REPORT RECEIVED FROM ANAMIKA MORSE. INSULIN GTT AND NS RATES CONFIRMED AT THIS TIME. CARE TAKEN OVER.
[2019-04-07 07:29] LABS: ALBUMIN 3.7 gm/dL (3.5-5.0); BILIRUBIN,TOTAL 0.4 mg/dL (0.0-1.0); CALCIUM 8.8 mg/dL (8.4-10.2); CREATININE, serum 1.75 (0.52-1.25); POTASSIUM 4.1 mmol/L (3.4-5.0)
--- NOTE | 2019-04-07 12:00 | NUR ---
DR. HENRY HERE TO SEE PATIENT. ORDERS RECEIVED.
--- NOTE | 2019-04-07 15:30 | NUR ---
INSULIN GTT DISCONTINUED. WILL CONTINUE TO MONITOR BLOOD GLUCOSE LEVELS
--- NOTE | 2019-04-07 20:42 | NUR ---
BS AT [facility], GISSELLE LIGHT NOTIFIED, AWAITING FOR ORDERS.
[2019-04-08] VITALS (662 sets, daily range): BP systolic 131–154; BP diastolic 62–94; PULSE 58–86; TEMP 97.7–98.1; O2SAT 69–100
[2019-04-08 06:15] LABS: MEAN CELL VOLUME 86 fl (80.0-100.0); MEAN CORPUSCULAR HEMOGLOBIN 28 pg (27.0-31.0); MEAN CORPUSCULAR HGB CONC 33 g/dl (33.0-37.0); MEAN PLATELET VOLUME 9.9 fl (7.4-10.4); PLATELET COUNT 481 K/mm3 (130-400); RED BLOOD COUNT 3.87 M/mm3 (4.10-5.30); REDCELL DISTRIBUTION WIDTH-CV 14.7 % (11.5-14.5)
[2019-04-08 06:31] LABS: CALCIUM 9.4 mg/dL (8.4-10.2); CREATININE, serum 1.62 (0.52-1.25); MAGNESIUM 2.5 mg/dL (1.6-2.3); POTASSIUM 3.6 mmol/L (3.4-5.0)
[2019-04-08 06:36] LABS: HEMATOCRIT 33.3 % (37.0-47.0)
[2019-04-08 07:08] LABS: LYMPHOCYTE 8 % (20.0-51.0); NEUTROPHILS 92 % (42.0-75.2); PLATELET ESTIMATE INCREASED (NORMAL)
[2019-04-08 07:09] LABS: ANISOCYTOSIS 1+
--- NOTE | 2019-04-08 10:26 | NUR ---
Follow-up visit; Patient thanked Boxing Instructor for looking in on her and offering God's blessings.
--- NOTE | 2019-04-08 21:06 | NUR ---
pt's BS at 438, hospitalist Felipa notified. will treat with corresponding sliding scale insulin. will continue to monitor.
[2019-04-09] VITALS (631 sets, daily range): BP systolic 149–152; BP diastolic 73–84; PULSE 71–79; TEMP 97.6–98.5; O2SAT 66–100
[2019-04-09 05:49] LABS: HEMOGLOBIN 10.2 g/dl (12.5-16.0); MEAN CELL VOLUME 86 fl (80.0-100.0); MEAN CORPUSCULAR HEMOGLOBIN 28 pg (27.0-31.0); MEAN CORPUSCULAR HGB CONC 33 g/dl (33.0-37.0); MEAN PLATELET VOLUME 10.5 fl (7.4-10.4); PLATELET COUNT 437 K/mm3 (130-400); RED BLOOD COUNT 3.63 M/mm3 (4.10-5.30); REDCELL DISTRIBUTION WIDTH-CV 14.9 % (11.5-14.5)
[2019-04-09 05:54] LABS: HEMATOCRIT 31.3 % (37.0-47.0)
[2019-04-09 05:56] LABS: CALCIUM 8.9 mg/dL (8.4-10.2); CREATININE, serum 1.61 (0.52-1.25); POTASSIUM 4.1 mmol/L (3.4-5.0)
[2019-04-09 06:18] LABS: BAND 1 % (0-10); EOSINOPHIL 1 % (0-4); LYMPHOCYTE 9 % (20.0-51.0); NEUTROPHILS 79 % (42.0-75.2)
[2019-04-09 06:19] LABS: PLATELET ESTIMATE INCREASED (NORMAL)
--- NOTE | 2019-04-09 08:00 | NUR ---
Pt A&o x4, sitting up in bed. Pt ate all breakfast. Pain 4/10 in Left Hip described as sharp. Pt provided PO Ultram for pain. Pt refused Lidocaine patch.
[2019-04-09] MEDS ORDERED: OMNICEF 300MG300 MG PO (09:54)
--- NOTE | 2019-04-09 10:31 | NUR ---
The patient is to discharge home today, 04/09. ENERGY ECONOMIST student presented the IM form to the patient. The patient understood and signed the form. A copy was provided to the patient and the original in the chart. There are no additional needs at this time.
--- NOTE | 2019-04-09 13:40 | NUR ---
PT IV DISCONTINUED. PT HAS RIDE AVAILABLE. PT ESCORTED TO ICU DOORS WITH PERSONAL BELONGINGS AND RIDE.
== END 2019-04-09 13:42 | disposition home or self-care (01) | DRG 190 ==
LOC: COL.ER 20:09 → ICU 22:21 → COL.ER 22:21 → MEDICAL 22:21 → ICU 04-05 23:03 → MEDICAL 04-05 23:03 → ICU 04-05 23:03
PROVIDERS: Emergency Medicine; Nurse Practitioner Family; Physician Assistant; Student in an Organized Health Care Education/Training Program; ADMIT Internal Medicine
DX: J44.1 Chronic obstructive pulmonary disease with (acute) exacerbation (principal); J96.01 Acute respiratory failure with hypoxia; J69.0 Pneumonitis due to inhalation of food and vomit; E87.1 Hypo-osmolality and hyponatremia; N39.0 Urinary tract infection, site not specified; I12.9 Hypertensive chronic kidney disease with stage 1 through stage 4 chronic kidney disease, or unspecified chronic kidney disease; E78.5 Hyperlipidemia, unspecified; I25.10 Atherosclerotic heart disease of native coronary artery without angina pectoris; E87.6 Hypokalemia; E11.22 Type 2 diabetes mellitus with diabetic chronic kidney disease; E11.40 Type 2 diabetes mellitus with diabetic neuropathy, unspecified; E11.65 Type 2 diabetes mellitus with hyperglycemia; D72.829 Elevated white blood cell count, unspecified; I95.9 Hypotension, unspecified; N18.3 Chronic kidney disease, stage 3 (moderate); E87.8 Other disorders of electrolyte and fluid balance, not elsewhere classified; K21.9 Gastro-esophageal reflux disease without esophagitis; E03.9 Hypothyroidism, unspecified; D47.3 Essential (hemorrhagic) thrombocythemia; G89.29 Other chronic pain; B96.20 Unspecified Escherichia coli [E. coli] as the cause of diseases classified elsewhere; M54.9 Dorsalgia, unspecified; F17.210 Nicotine dependence, cigarettes, uncomplicated; Z79.4 Long term (current) use of insulin; Z79.891 Long term (current) use of opiate analgesic; Z79.82 Long term (current) use of aspirin; Z95.5 Presence of coronary angioplasty implant and graft; Z90.710 Acquired absence of both cervix and uterus
CPT/HCPCS: 99223-AI; 99233-AI; 99239; A4216; J0696; J1644; J1815; J2930; J7030; J7512

== ENCOUNTER 2019-04-14 09:04 | Emergency (ER) | payer MEDICARE ==
[~2019-04-14] VITALS: Ht 162.6 cm; Wt 109.1 kg
[~2019-04-14 09:04] MED LIST changes: +NEURONTIN600 MG/TAB PO; +OMNICEF 300MG300 MG PO
[2019-04-14 10:09] LABS: BASO # 0.1 (0.0-0.2); BASO % 0.5 % (0.0-2.0); EOS # 0.3 (0.0-0.7); EOS % 3.1 % (0-4.0); GRAN # 7.8 (1.4-6.5); GRAN % 74.9 % (42.2-75.2); HEMATOCRIT 38.5 % (37.0-47.0); LYMPH # 1.4 (1.2-3.4); LYMPH % 13.6 % (20.0-51.0); MEAN CELL VOLUME 89 fl (80.0-100.0); MEAN CORPUSCULAR HEMOGLOBIN 28 pg (27.0-31.0); MEAN CORPUSCULAR HGB CONC 31 g/dl (33.0-37.0); MEAN PLATELET VOLUME 9.5 fl (7.4-10.4); MONO # 0.8 (0.1-0.6); MONO % 7.4 % (1.7-9.3); PLATELET COUNT 441 K/mm3 (130-400); RED BLOOD COUNT 4.33 M/mm3 (4.10-5.30); REDCELL DISTRIBUTION WIDTH-CV 14.9 % (11.5-14.5)
[2019-04-14 10:27] LABS: ALBUMIN 4.1 gm/dL (3.5-5.0); BILIRUBIN,TOTAL 0.6 mg/dL (0.0-1.0); C-REACTIVE PROTEIN 1.8 mg/dL (0.0-0.9); CALCIUM 9.8 mg/dL (8.4-10.2); CREATININE, serum 1.67 (0.52-1.25); POTASSIUM 4.3 mmol/L (3.4-5.0); TOTAL PROTEIN 7.6 gm/dL (6.4-8.2)
[2019-04-14 10:36] LABS: TROPONIN-I 0.012 ng/mL (0.000-0.035)
[2019-04-14 12:26] LABS: COLLECTION METHOD CLEAN CATCH
[2019-04-14 12:38] LABS: MUCOUS Present /lpf; PH 6 (5-8); SQUAMOUS EPITHELIAL 0-2 /hpf; URINE APPEARANCE Hazy; URINE BACTERIA None Seen /hpf; URINE BILIRUBIN Negative (NEGATIVE); URINE BLOOD Negative (NEGATIVE); URINE COLOR Yellow; URINE GLUCOSE Negative (NEGATIVE); URINE KETONE Trace (NEGATIVE); URINE LEUKOCYTE ESTERASE Negative (NEGATIVE); URINE NITRATE Negative (NEGATIVE); URINE PROTEIN(semi-quant) 1+ (NEGATIVE); URINE RBC 0-2 /hpf; URINE UROBILINOGEN Negative (NEGATIVE)
[2019-04-14] MEDS ORDERED: ZOFRAN ODT4 MG PO (13:51)
[2019-04-14] MEDS ORDERED: CARAFATE 1GM1 G PO (13:51)
[2019-04-14] MEDS ORDERED: NORCO 325 MG-51 TAB PO (13:51)
[2019-04-14] MEDS ORDERED: MACROBID 1100 MG/CAP PO (13:51)
[2019-04-14 14:30] VITALS: BP 132/70; PULSE 74; TEMP 97.9
== END 2019-04-14 14:30 | disposition home or self-care (01) ==
LOC: COL.ER 09:04
PROVIDERS: Emergency Medicine
DX: N39.0 Urinary tract infection, site not specified (principal); K29.70 Gastritis, unspecified, without bleeding; J44.9 Chronic obstructive pulmonary disease, unspecified; E78.5 Hyperlipidemia, unspecified; E11.22 Type 2 diabetes mellitus with diabetic chronic kidney disease; N18.3 Chronic kidney disease, stage 3 (moderate); I12.9 Hypertensive chronic kidney disease with stage 1 through stage 4 chronic kidney disease, or unspecified chronic kidney disease; Z95.5 Presence of coronary angioplasty implant and graft; Z79.4 Long term (current) use of insulin; Z79.82 Long term (current) use of aspirin; Z90.89 Acquired absence of other organs; Z90.710 Acquired absence of both cervix and uterus
CPT/HCPCS: C9113; J2405; J7040

== ENCOUNTER 2019-08-27 11:03 | Emergency (ER) | payer MEDICARE ==
[~2019-08-27] VITALS: Ht 162.6 cm; Wt 100.0 kg
[~2019-08-27 11:03] MED LIST changes: +MACROBID 1100 MG/CAP PO; +NORCO 325 MG-51 TAB PO; +ZOFRAN ODT4 MG PO
[2019-08-27 11:21] VITALS: TEMP 98.4
[2019-08-27 12:35] LABS: BASO # 0.1 (0.0-0.2); BASO % 0.7 % (0.0-2.0); EOS # 0.1 (0.0-0.7); EOS % 1.4 % (0-4.0); GRAN % 76.8 % (42.2-75.2); HEMATOCRIT 42.1 % (37.0-47.0); HEMOGLOBIN 13.4 g/dl (12.5-16.0); LYMPH # 1.3 (1.2-3.4); LYMPH % 14.6 % (20.0-51.0); MEAN CELL VOLUME 87 fl (80.0-100.0); MEAN CORPUSCULAR HEMOGLOBIN 28 pg (27.0-31.0); MEAN CORPUSCULAR HGB CONC 32 g/dl (33.0-37.0); MEAN PLATELET VOLUME 10.4 fl (7.4-10.4); MONO # 0.6 (0.1-0.6); MONO % 6.1 % (1.7-9.3); PLATELET COUNT 306 K/mm3 (130-400); RED BLOOD COUNT 4.85 M/mm3 (4.10-5.30); REDCELL DISTRIBUTION WIDTH-CV 16.5 % (11.5-14.5)
[2019-08-27 12:45] LABS: ALANINE AMINOTRANSFERASE 25 U/L (9-52); ALBUMIN 4.4 gm/dL (3.5-5.0); ALKALINE PHOSPHATASE 112 U/L (50-136); ANION GAP 10 mmol/L (7-16); AST,SGOT 31 U/L (15-37); BILIRUBIN,TOTAL 0.8 mg/dL (0.0-1.0); BLOOD UREA NITROGEN 32 mg/dL (7-17); C-REACTIVE PROTEIN 0.7 mg/dL (0.0-0.9); CALCIUM 9.9 mg/dL (8.4-10.2); CARBON DIOXIDE 25 mmol/L (22-30); CHLORIDE 105 mmol/L (98-107); CREATININE, serum 1.68 (0.52-1.25); GLUCOSE 190 mg/dL (74-106); POTASSIUM 4.3 mmol/L (3.4-5.0); SODIUM 141 mmol/L (137-145); TOTAL PROTEIN 7.8 gm/dL (6.4-8.2)
[2019-08-27 12:50] LABS: COLLECTION METHOD CLEAN CATCH
[2019-08-27 12:55] LABS: PH 5 (5-8); SQUAMOUS EPITHELIAL 0-2 /hpf; URINE APPEARANCE Clear; URINE BACTERIA None Seen /hpf; URINE BILIRUBIN Negative (NEGATIVE); URINE BLOOD Negative (NEGATIVE); URINE COLOR Yellow; URINE GLUCOSE Negative (NEGATIVE); URINE KETONE Negative (NEGATIVE); URINE LEUKOCYTE ESTERASE Negative (NEGATIVE); URINE NITRATE Negative (NEGATIVE); URINE PROTEIN(semi-quant) Negative (NEGATIVE); URINE RBC 0-2 /hpf; URINE UROBILINOGEN Negative (NEGATIVE)
[2019-08-27 12:58] LABS: TROPONIN-I < 0.012 ng/mL (0.000-0.035)
[2019-08-27 13:49] VITALS: BP 139/65; PULSE 85
== END 2019-08-27 14:05 | disposition home or self-care (01) ==
LOC: COL.ER 11:03
PROVIDERS: Physician Assistant
DX: R19.7 Diarrhea, unspecified (principal); R11.10 Vomiting, unspecified; I25.10 Atherosclerotic heart disease of native coronary artery without angina pectoris; E03.9 Hypothyroidism, unspecified; E78.5 Hyperlipidemia, unspecified; J44.9 Chronic obstructive pulmonary disease, unspecified; I12.9 Hypertensive chronic kidney disease with stage 1 through stage 4 chronic kidney disease, or unspecified chronic kidney disease; E11.22 Type 2 diabetes mellitus with diabetic chronic kidney disease; N18.9 Chronic kidney disease, unspecified; F17.210 Nicotine dependence, cigarettes, uncomplicated; Z79.82 Long term (current) use of aspirin; Z79.4 Long term (current) use of insulin
CPT/HCPCS: J2405; J7030

== ENCOUNTER → 2019-09-21 | Outpatient (CLI) | payer MEDICARE | LOC: MC.RAD 16:31 | DX: Z12.31 Encounter for screening mammogram for malignant neoplasm of breast (principal); N63.21 Unspecified lump in the left breast, upper outer quadrant ==

== ENCOUNTER → 2019-09-24 | Outpatient (CLI) | payer MEDICARE | LOC: MC.RAD 10:38 | DX: N63.21 Unspecified lump in the left breast, upper outer quadrant (principal) ==

== ENCOUNTER → 2021-01-27 | Outpatient (CLI) | payer MEDICARE ==
[~2021-01-27] MED LIST changes: +K-DUR 10 MEQ T10 MEQ PO; +LASIX 20MG TABL20 MG PO; +NORVASC 10MG10 MG PO; +PEPCID 20MG TAB20 MG PO; +VENTOLIN0.09 MG IH; +ZOFRAN 4MG T4 MG/TAB PO
[2021-01-27 11:44] LABS: SYNOVIAL FL. MONONUCLEAR 4.7 % (0-75); SYNOVIAL FLUID RBC 34000 /mm3 (0-0); SYNOVIAL FLUID WBC 72514 /mm3 (200-600)
[2021-01-27 11:47] LABS: SYNOVIAL FLUID APPEARANCE TURBID; SYNOVIAL FLUID COLOR PINK
== END ==
LOC: ZCOL.LAB 11:23
PROVIDERS: Orthopaedic Surgery
DX: M25.571 Pain in right ankle and joints of right foot (principal)

== ENCOUNTER 2021-01-30 09:11 | Day surgery (SDC) | payer MEDICARE ==
[~2021-01-30] VITALS: Ht 162.6 cm; Wt 97.5 kg
[2021-01-30] MEDS ORDERED: BUMEX 1MG TA1 MG/TA1 PO (10:02)
[2021-01-30 10:03] VITALS: BP 147/75; PULSE 100; TEMP 98.9
--- NOTE | 2021-01-30 10:25 | NUR ---
Called Alin Sutherland CRNA regarding patient having wheezing in bilateral lungs. No orders received at this time.
[2021-01-30 13:00] VITALS: BP 144/67; PULSE 91; TEMP 98.4
--- NOTE | 2021-01-30 13:00 | NUR ---
Patient arrives to [place] [id number] via cart, accompanied by SUPERVISOR DRYING Katya. She is alert and oriented, sitting up in bed. She is cheerful and denies pain or nausea. She is eating ice chips and is happy with just those for now. IVF to TKO. Her operative site is covered with a clean, dry, intact bandage and she has a post-op shoe on the right foot. She has an ice pack to the operative site. She is able to wiggle her toes/move her foot freely. Foot is warm and normal in color.
[2021-01-30 13:15] VITALS: BP 134/64; PULSE 65
--- NOTE | 2021-01-30 13:15 | NUR ---
Patient is asleep. She is easily awakened. Her daughter arrives and is brought to the bedside. The patient is offered and receives coffee and a muffin to eat.
[2021-01-30 13:30] VITALS: BP 144/72; PULSE 67; TEMP 97.7
[2021-01-30 13:45] VITALS: BP 133/62; PULSE 67
--- NOTE | 2021-01-30 13:45 | NUR ---
Patient is tolerating PO well. She does not feel the need to void yet. PICC line is flushed with 20mL Normal saline and clamped.
[2021-01-30 14:00] VITALS: BP 117/60
--- NOTE | 2021-01-30 14:18 | NUR ---
Patient ambulates to the restroom, voids, and returns to room.
--- NOTE | 2021-01-30 14:40 | NUR ---
Patient has met discharge criteria. Discharge instructions are discussed. She denies any questions and verbalizes understanding. She changes to her clothing independently. She is escorted to the exit via wheelchair by staff and discharged to the care of her daughter, Tori, who drives her home in a private vehicle at 1440.
== END 2021-01-30 14:40 | disposition home or self-care (01) ==
LOC: SDCO 09:11
DX: L03.115 Cellulitis of right lower limb (principal); M25.471 Effusion, right ankle; M94.271 Chondromalacia, right ankle and joints of right foot; I10 Essential (primary) hypertension; E78.5 Hyperlipidemia, unspecified; I25.10 Atherosclerotic heart disease of native coronary artery without angina pectoris; K21.9 Gastro-esophageal reflux disease without esophagitis; J45.909 Unspecified asthma, uncomplicated; E78.00 Pure hypercholesterolemia, unspecified; E10.42 Type 1 diabetes mellitus with diabetic polyneuropathy; E07.9 Disorder of thyroid, unspecified; J44.9 Chronic obstructive pulmonary disease, unspecified; G89.29 Other chronic pain; M54.9 Dorsalgia, unspecified; Z20.822 Contact with and (suspected) exposure to COVID-19; Z79.4 Long term (current) use of insulin; Z79.899 Other long term (current) drug therapy; Z95.1 Presence of aortocoronary bypass graft; Z80.9 Family history of malignant neoplasm, unspecified
CPT/HCPCS: J0690; J1100; J1885; J2405; J2704; J3010; J7120

== ENCOUNTER → 2022-02-02 | Outpatient (CLI) | payer MEDICARE | LOC: MC.RAD 02-01 13:00 | DX: Z12.31 Encounter for screening mammogram for malignant neoplasm of breast (principal) ==